=== PATIENT | female | born 1985 | race Caucasian/White ===

== ENCOUNTER 2016-08-03 17:53 | Emergency (ER) | payer OTHER ==
[~2016-08-03] VITALS: Ht 165.1 cm; Wt 86.5 kg
[~2016-08-03 17:53] MED LIST: COLACE100 MG PO
[2016-08-03] MEDS ORDERED: MOBIC7.5 MG PO (19:02)
[2016-08-03] MEDS ORDERED: FLEXERIL10 MG PO (19:02)
[2016-08-03 19:51] VITALS: BP 112/62
== END 2016-08-03 19:54 | disposition home or self-care (01) ==
LOC: EME 17:53
DX: M62.830 Muscle spasm of back (principal); Z88.1 Allergy status to other antibiotic agents; Z88.6 Allergy status to analgesic agent; Z88.0 Allergy status to penicillin; F17.200 Nicotine dependence, unspecified, uncomplicated
CPT/HCPCS: 99281; 99284